=== PATIENT | female | born 1925 | race Caucasian/White ===

== ENCOUNTER → 2016-11-01 | Outpatient (CLI) | payer MEDICARE, OTHER ==
--- NOTE | 2016-11-01 15:38 | US ---
EXAMINATION TYPE: US kidneys/renal and bladder DATE OF EXAM: 11/01/2016 3:13 PM COMPARISON: NONE CLINICAL HISTORY: US. Hematuria microscopic per order. EXAM MEASUREMENTS: Right Kidney: 9.1 x 5.4 x 4.9cm Left Kidney: 10.5 x 7.9 x 7.2cm ANATOMY: TECHNOLOGIST IMPRESSION: Right Kidney: no evidence of hydronephrosis Left Kidney: cystic lesion = 6.4 x 7.1 x 6.2cm Bladder: appears wnl Bilateral Jets seen: yes There is no evidence for hydronephrosis at this point in time in either kidney. There is large otherw ise simple appearing 7.1 cm cyst in left kidney mid pole level. The urinary bladder is anechoic. Bilateral ureteral jets are seen towards end of study. IMPRESSION: No significant finding is seen to account for patient's symptoms.
== END | disposition home or self-care (01) ==
LOC: RADUSWWP 14:44
PROVIDERS: ATTEND Family Medicine
DX: R31.29 Other microscopic hematuria (principal)
CPT/HCPCS: 76770

== ENCOUNTER 2017-02-04 14:00 | Emergency (ER) | payer MEDICARE, OTHER ==
--- NOTE | 2017-02-04 14:50 | ED ---
General Adult HPI - General Chief complaint: Urogenital Stated complaint: poss UTI Time Seen by Provider: 02/04/17 14:22 Source: patient, family, RN notes reviewed, old records reviewed Mode of arrival: ambulatory Limitations: altered mental status - History of Present Illness Initial comments: Chief complaint and history of present illness this is a 11-year-old female here with her daughter. The daughter takes care of her. 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 She's not yet diagnosed Alzheimer's. She has had urinary tract infections which usually occur when she has her significant mental changes. The patient himself has no complaints of any discomfort or problems. - Related Data Home Medications Medication Instructions Recorded Confirmed Ascorbic Acid [Vitamin C] 500 mg PO BID 01/11/16 02/04/17 Atorvastatin [Lipitor] 20 mg PO AC-SUPPER 01/11/16 02/04/17 Cholecalciferol [Vitamin D3] 1,000 unit PO AC-BRKFST 01/11/16 02/04/17 Cranberry 4,200 mg PO DAILY 01/11/16 02/04/17 Cyanocobalamin [Vitamin B-12] 1,000 mcg PO AC-BRKFST 01/11/16 02/04/17 Donepezil [Aricept] 20 mg PO AC-SUPPER 01/11/16 02/04/17 LORazepam [Ativan] 0.5 mg PO TID PRN 01/11/16 02/04/17 Melatonin 15 mg PO DAILY 01/11/16 02/04/17 Memantine [Namenda] 10 mg PO BID 01/11/16 02/04/17 Methylsulfonylmethane [MSM] 1,000 mg PO DAILY 01/11/16 02/04/17 Mirtazapine [Remeron] 7.5 mg PO AC-SUPPER 01/11/16 02/04/17 Vit C/E/Zn/Coppr/Lutein/Zeaxan 1 cap PO BID 01/11/16 02/04/17 [Preservision Areds 2 Softgel] Divalproex Sodium [Depakote] 125 mg PO W/SUPPER 10/09/16 02/04/17 Loratadine [Claritin] 10 mg PO DAILY 10/09/16 02/04/17 Multivitamins, Thera [Multivitamin] 1 tab PO DAILY 10/09/16 02/04/17 Methenamine/Sodium Salicylate 2 tab PO BID 02/04/17 02/04/17 [Cystex Tablet] Allergies Allergy/AdvReac Type Severity Reaction Status Date / Time No Known Allergies Allergy Verified 02/04/17 14:27 Review of Systems ROS Statement: Those systems with pertinent positive or pertinent negative responses have been documented in the HPI. Review of systems patient's denying headache chest pain shortness of breath GI/ problems. She states she is not hungry. Daughter reports that she does have a history of dementia which is getting progressively worse as the years gone on. Daughter reports that her frequent history of urinary tract infections hyperlipidemia and dementia. No apparent surgical history cornea. No ALLERGIES noted. On last visit to the emergency room this past [place]. The patient was positive for RBCs in the urine. They did follow with family physician ultrasound of the kidneys were negative. No repeat urinalysis was done after that so today is with the first one since then. Nonsmoker nondrinker. ROS Other: All systems not noted in ROS Statement are negative. Past Medical History Past Medical History: Hyperlipidemia Additional Past Medical History / Comment(s): DEMENTIA History of Any Multi-Drug Resistant Organisms: None Reported Past Surgical History: No Surgical Hx Reported Past Psychological History: No Psychological Hx Reported Smoking Status: Never smoker Past Alcohol Use History: None Reported Past Drug Use History: None Reported General Exam - General Exam Comments Initial Comments: General: The patient is awake and alert, in no distress, and does not appear acutely ill. Patient does have dementia and had some difficulty expressing herself initially. Forgot who her daughter was. Vital signs shows temperature 99.0 pulse 85 respiratory rate 20 pulse ox 96% room air blood pressure 137/64 Eye: Pupils are equal, round and reactive to light, extra-ocular movements are intact ; there is normal conjunctiva bilaterally. No signs of icterus. Patient has arcus senilis Ears, nose, mouth and throat: There are moist mucous membranes and no oral lesions. Neck: The neck is supple, there is no tenderness , no anterior cervical lymphadenopathy. No complaint of headache or stiff neck with movement. Cardiovascular: There is a regular rate and rhythm. No murmur, rub or gallop is appreciated. Respiratory: Lungs are clear to auscultation, respirations are non-labored, breath sounds are equal. No wheezes, stridor, rales, or rhonchi. Gastrointestinal: Soft, non-distended, non-tender abdomen without masses or organomegaly noted. There is no rebound or guarding present. No CVA tenderness. Bowel sounds are unremarkable. Back: There is no tenderness to palpation in the midline. There is no obvious deformity. No rashes noted. No back pain. Daughter reports that when she walks occasion she'll stop bend over as though she is in pain. The patient was able to demonstrate to assess years old walk 20-30 feet turn around and come back did not complain of any pain did not act as if she is in pain. Musculoskeletal: Normal ROM, no tenderness, There is no pedal edema. There is no calf tenderness or swelling. Sensation intact. Pulses equal bilaterally 2+. Neurological: Neurologically the patient's moving upper and lower extremities walking with good balance. No evidence of any focal or lateralizing findings. Skin: Patient has a chronic skin condition with multiple skin tags on her back. Psychiatric: History of dementia. 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 Limitations: altered mental status Course Vital Signs 02/04/17 14:02 Temperature 99.0 F Pulse Rate 85 Respiratory 20 Rate Blood Pressure 137/64 O2 Sat by Pulse 96 Oximetry Medical Decision Making - Medical Decision Making Medical decision making the patient's urine shows only 1 red 4 whites. I discussed with the patient and daughter at bedside sundowners and progression of dementia etc. The patient this time has no other complaints and playing without difficulty. Daughter's was advised to follow-up with the family physician. Return emergency room as needed - Lab Data Lab Results 02/04/17 Range/Units 14:52 Urine Color Light Yellow Urine Appearance Clear (Clear) Urine pH 6.0 (5.0-8.0) Ur Specific [place] 1.009 (1.001-1.035) Urine Protein Negative (Negative) Urine Glucose (UA) Negative (Negative) Urine Ketones Negative (Negative) Urine Blood Negative (Negative) Urine Nitrite Negative (Negative) Urine Bilirubin Negative (Negative) Urine Urobilinogen <2.0 (<2.0) mg/dL Ur Leukocyte Esterase Trace H (Negative) Urine RBC 1 (0-5) /hpf Urine WBC 4 (0-5) /hpf Ur Squamous Epith Cells <1 (0-4) /hpf Amorphous Sediment Rare H (None) /hpf Urine Mucus Rare H (None) /hpf Disposition 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 Family to ensure environment is safe for the patient. Time of Disposition: 15:25
[2017-02-04 15:12] LABS: Amorphous Sediment,Urine Rare /hpf; Appearance,Urine Clear (Clear); Bilirubin,Urine Negative (Negative); Glucose,Urine (UA) Negative (Negative); Ketones,Urine Negative (Negative); Leukocyte Esterase,Urine Trace (Negative); Mucus,Urine Rare /hpf; Nitrite,Urine Negative (Negative); Particle Count 1811; Protein,Urine Negative (Negative); RBC,Urine 1 /hpf (0-5); Specific Gravity,Urine 1.009 (1.001-1.035); Squamous Epithelial Cell,Urine <1 /hpf (0-4); UA Billing (MACRO vs. MICRO) MICRO; Urobilinogen,Urine <2.0 mg/dL (<2.0); WBC,Urine 4 /hpf (0-5)
[2017-02-04 15:46] VITALS: BP 132/62; PULSE 78; RESP 18; TEMP 99.1
== END 2017-02-04 15:45 | disposition home or self-care (01) ==
LOC: EC 14:00
DX: F03.90 Unspecified dementia, unspecified severity, without behavioral disturbance, psychotic disturbance, mood disturbance, and anxiety (principal); F91.9 Conduct disorder, unspecified; E78.5 Hyperlipidemia, unspecified; Z79.899 Other long term (current) drug therapy
CPT/HCPCS: 81001; 87086; 99284

== ENCOUNTER 2017-06-01 16:06 | Emergency (ER) | payer MEDICARE ==
[2017-06-01 16:33] VITALS: TEMP 99.1
--- NOTE | 2017-06-01 17:21 | ED ---
Altered Mental Status HPI - General Chief Complaint: Altered Mental Status Stated Complaint: dementia agitation Time Seen by Provider: 06/01/17 16:26 Source: family, EMS, RN notes reviewed, old records reviewed Mode of arrival: EMS - History of Present Illness Initial Comments: A 11-year-old female presents emergency Department via EMS with her daughter chief complaint of increased agitation. Patient's daughter takes care of her. Patient's daughter reports that she was becoming severely agitated and she had a call the police to call her mother down. Patient daughter reports that she gave her an Ativan at 1:30. Patient was becoming increasingly agitated around before that and around 3:00. Patient daughter states that she is concerned she may have a possible UTIs this has been acutely worse. She states that she occasionally will have some agitation and never has been this bad. - Related Data Home Medications Medication Instructions Recorded Confirmed Ascorbic Acid [Vitamin C] 500 mg PO BID 01/11/16 06/01/17 Atorvastatin [Lipitor] 20 mg PO W/SUPPER 01/11/16 06/01/17 Cholecalciferol [Vitamin D3] 1,000 unit PO W/BRKFST 01/11/16 06/01/17 Donepezil [Aricept] 20 mg PO W/SUPPER 01/11/16 06/01/17 LORazepam [Ativan] 0.5 mg PO TID PRN 01/11/16 06/01/17 Melatonin 15 mg PO W/SUPPER 01/11/16 06/01/17 Memantine [Namenda] 10 mg PO BID 01/11/16 06/01/17 Methylsulfonylmethane [MSM] 1,000 mg PO DAILY 01/11/16 06/01/17 Vit C/E/Zn/Coppr/Lutein/Zeaxan 1 cap PO BID 01/11/16 06/01/17 [Preservision Areds 2 Softgel] Divalproex Sodium [Depakote] 125 mg PO BID 10/09/16 06/01/17 Loratadine [Claritin] 10 mg PO QAM 10/09/16 06/01/17 Cranberry Fruit Extract [Cranberry] 500 mg PO DAILY 06/01/17 06/01/17 Cyanocobalamin (Vitamin B-12) 1,000 mcg PO W/BRKFST 06/01/17 06/01/17 [Vitamin B-12] Mirtazapine 7.5 mg PO W/SUPPER 06/01/17 06/01/17 Multivitamins, Thera [Multivitamin 1 tab PO W/BRKFST 06/01/17 06/01/17 (formulary)] Previous Rx's Medication Instructions Recorded LORazepam [Ativan] 0.5 mg PO TID #20 tab 06/01/17 Allergies Allergy/AdvReac Type Severity Reaction Status Date / Time No Known Allergies Allergy Verified 02/04/17 14:27 Review of Systems ROS Statement: Those systems with pertinent positive or pertinent negative responses have been documented in the HPI. ROS Other: All systems not noted in ROS Statement are negative. Past Medical History Past Medical History: Hyperlipidemia Additional Past Medical History / Comment(s): DEMENTIA History of Any Multi-Drug Resistant Organisms: None Reported Past Surgical History: No Surgical Hx Reported Past Psychological History: No Psychological Hx Reported Smoking Status: Never smoker Past Alcohol Use History: None Reported Past Drug Use History: None Reported General Exam - General Exam Comments Initial Comments: 89-year-old female, patient has dementia. Patient is calm and resting and playing with a stuffed animal. General appearance: alert, in no apparent distress Head exam: Present: atraumatic, normocephalic, normal inspection Eye exam: Present: normal appearance, PERRL, EOMI. Absent: scleral icterus, conjunctival injection, periorbital swelling ENT exam: Present: normal exam, mucous membranes moist Neck exam: Present: normal inspection. Absent: tenderness, meningismus, lymphadenopathy Respiratory exam: Present: normal lung sounds bilaterally. Absent: respiratory distress, wheezes, rales, rhonchi, stridor Cardiovascular Exam: Present: regular rate, normal rhythm, normal heart sounds. Absent: systolic murmur, diastolic murmur, rubs, gallop, clicks GI/Abdominal exam: Present: soft, normal bowel sounds. Absent: distended, tenderness, guarding, rebound, rigid Extremities exam: Present: normal inspection, full ROM, normal capillary refill. Absent: tenderness, pedal edema, joint swelling, calf tenderness Back exam: Present: normal inspection Neurological exam: Present: alert, oriented X3, CN II-XII intact Psychiatric exam: Present: normal affect, normal mood Skin exam: Present: warm, dry, intact, normal color. Absent: rash Course Vital Signs 06/01/17 06/01/17 06/01/17 16:23 16:31 18:41 Temperature 99.7 F H 99.1 F Pulse Rate 73 70 71 Respiratory 16 17 17 Rate Blood Pressure 120/58 120/58 122/56 O2 Sat by Pulse 96 94 L 96 Oximetry Medical Decision Making - Medical Decision Making Female chief complaint of increased agitation over the past day. Patient's caregiver, her daughter is concerned she may have urinary tract infection or other signs of the malleus. Patient's lab work was reviewed and negative for any acute process. Negative for urinary tract infection. Discussed that patient does have severe dementia and it seems to be increasing. Discussed that they Should increase patient's Ativan dosage if she is becoming acutely worsen agitated. Patient was given 2 mg of Ativan in the emergency department. Lengthy discussion with the caregiver, patient's daughter that she needs to be taking the Ativan regularly if she became increasingly agitated. Discussed close follow-up with her primary care physician. Return to emergency department if any alarming signs or symptoms occur. - Lab Data Result diagrams: 06/01/17 18:07 06/01/17 18:07 Lab Results 06/01/17 06/01/17 06/01/17 Range/Units 18:07 18:07 18:07 WBC 7.1 (3.8-10.6) k/uL RBC 4.10 (3.80-5.40) m/uL Hgb 13.6 (11.4-16.0) gm/dL Hct 41.8 (34.0-46.0) % MCV 101.8 H (80.0-100.0) fL MCH 33.2 (25.0-35.0) pg MCHC 32.6 (31.0-37.0) g/dL RDW 13.3 (11.5-15.5) % Plt Count 292 (150-450) k/uL Neutrophils % 71 % Lymphocytes % 18 % Monocytes % 7 % Eosinophils % 2 % Basophils % 1 % Neutrophils # 5.1 (1.3-7.7) k/uL Lymphocytes # 1.3 (1.0-4.8) k/uL Monocytes # 0.5 (0-1.0) k/uL Eosinophils # 0.1 (0-0.7) k/uL Basophils # 0.0 (0-0.2) k/uL Macrocytosis Slight PT (9.0-12.0) sec INR (<1.2) APTT (22.0-30.0) sec Sodium 142 (137-145) mmol/L Potassium 4.1 (3.5-5.1) mmol/L Chloride 103 (98-107) mmol/L Carbon Dioxide 28 (22-30) mmol/L Anion Gap 11 mmol/L BUN 20 H (7-17) mg/dL Creatinine 0.89 (0.52-1.04) mg/dL Est GFR (MDRD) Af Amer >60 (>60 ml/min/1.73 sqM) Est GFR (MDRD) Non-Af 60 (>60 ml/min/1.73 sqM) Glucose 82 (74-99) mg/dL POC Glucose (mg/dL) (75-99) mg/dL POC Glu Food Sanitarian ID Calcium 9.7 (8.4-10.2) mg/dL Total Bilirubin 0.5 (0.2-1.3) mg/dL AST 21 (14-36) U/L ALT 28 (9-52) U/L Alkaline Phosphatase 88 (38-126) U/L Total Creatine Kinase 35 (30-135) U/L CK-MB (CK-2) 0.7 (0.0-2.4) ng/mL CK-MB (CK-2) Rel Index 2.0 Troponin I 0.012 (0.000-0.034) ng/mL Total Protein 7.4 (6.3-8.2) g/dL Albumin 4.3 (3.5-5.0) g/dL Urine Color Urine Appearance (Clear) Urine pH (5.0-8.0) Ur Specific [place] (1.001-1.035) Urine Protein (Negative) Urine Glucose (UA) (Negative) Urine Ketones (Negative) Urine Blood (Negative) Urine Nitrite (Negative) Urine Bilirubin (Negative) Urine Urobilinogen (<2.0) mg/dL Ur Leukocyte Esterase (Negative) 06/01/17 06/01/17 06/01/17 Range/Units 18:07 18:25 19:05 WBC (3.8-10.6) k/uL RBC (3.80-5.40) m/uL Hgb (11.4-16.0) gm/dL Hct (34.0-46.0) % MCV (80.0-100.0) fL MCH (25.0-35.0) pg MCHC (31.0-37.0) g/dL RDW (11.5-15.5) % Plt Count (150-450) k/uL Neutrophils % % Lymphocytes % % Monocytes % % Eosinophils % % Basophils % % Neutrophils # (1.3-7.7) k/uL Lymphocytes # (1.0-4.8) k/uL Monocytes # (0-1.0) k/uL Eosinophils # (0-0.7) k/uL Basophils # (0-0.2) k/uL Macrocytosis PT 10.7 (9.0-12.0) sec INR 1.1 (<1.2) APTT 23.1 (22.0-30.0) sec Sodium (137-145) mmol/L Potassium (3.5-5.1) mmol/L Chloride (98-107) mmol/L Carbon Dioxide (22-30) mmol/L Anion Gap mmol/L BUN (7-17) mg/dL Creatinine (0.52-1.04) mg/dL Est GFR (MDRD) Af Amer (>60 ml/min/1.73 sqM) Est GFR (MDRD) Non-Af (>60 ml/min/1.73 sqM) Glucose (74-99) mg/dL POC Glucose (mg/dL) 96 (75-99) mg/dL POC Glu Food Sanitarian ID Max, [place] Calcium (8.4-10.2) mg/dL Total Bilirubin (0.2-1.3) mg/dL AST (14-36) U/L ALT (9-52) U/L Alkaline Phosphatase (38-126) U/L Total Creatine Kinase (30-135) U/L CK-MB (CK-2) (0.0-2.4) ng/mL CK-MB (CK-2) Rel Index Troponin I (0.000-0.034) ng/mL Total Protein (6.3-8.2) g/dL Albumin (3.5-5.0) g/dL Urine Color Light Yellow Urine Appearance Clear (Clear) Urine pH 7.0 (5.0-8.0) Ur Specific [place] 1.010 (1.001-1.035) Urine Protein Negative (Negative) Urine Glucose (UA) Negative (Negative) Urine Ketones Negative (Negative) Urine Blood Negative (Negative) Urine Nitrite Negative (Negative) Urine Bilirubin Negative (Negative) Urine Urobilinogen <2.0 (<2.0) mg/dL Ur Leukocyte Esterase Negative (Negative) 06/01/17 19:20 EKG shows normal sinus rhythm. Vent rate 64 bpm. HI interval 150 ms. QS duration 82 ms. QT QTc is 404/460 ms. Disposition Clinical Impression: Alzheimer disease Disposition: HOME SELF-CARE Condition: Stable Instructions: Dementia (ED) Additional Instructions: Patient has follow-up with her primary care physician. You can increase her Ativan dosage to how it as prescribed for 3 times a day, or if she is increased 4 times a day. Patient is to return to the emergency department if any alarming signs or symptoms occur. Prescriptions: LORazepam [Ativan] 0.5 mg PO TID #20 tab Referrals: Herb Schuler MD [Primary Care Provider] - 1-2 days Time of Disposition: 20:06
[2017-06-01 18:19] LABS: Basophils % (A) 1 %; CH 33.8; CHCM 33.4; Eosinophils # (A) 0.1 k/uL (0-0.7); Eosinophils % (A) 2 %; HCT 41.8 % (34.0-46.0); HDW 2.03; HGB 13.6 gm/dL (11.4-16.0); Luc # (Auto) 0.15; Luc % (Auto) 2; Lymphocytes # (A) 1.3 k/uL (1.0-4.8); Lymphocytes % (A) 18 %; MCH 33.2 pg (25.0-35.0); MCHC 32.6 g/dL (31.0-37.0); MCV 101.8 fL (80.0-100.0); Macrocytosis Slight; Mean Platelet Volume 7.6; Monocytes # (A) 0.5 k/uL (0-1.0); Monocytes % (A) 7 %; Neutrophils # (A) 5.1 k/uL (1.3-7.7); Neutrophils % (A) 71 %; RDW 13.3 % (11.5-15.5); WBC 7.1 k/uL (3.8-10.6); WBC (Perox) 7.44
[2017-06-01 18:28] LABS: INR 1.1 (<1.2); Partial Thromboplastin Time 23.1 sec (22.0-30.0); Prothrombin Time 10.7 sec (9.0-12.0)
[2017-06-01 18:28] LABS: Glucose,Whole Blood 96 mg/dL (75-99)
[2017-06-01 18:29] LABS: ALT 28 U/L (9-52); AST 21 U/L (14-36); Alkaline Phosphatase 88 U/L (38-126); Anion Gap 11 mmol/L; Blood Urea Nitrogen 20 mg/dL (7-17); Calcium 9.7 mg/dL (8.4-10.2); Carbon Dioxide 28 mmol/L (22-30); Chloride 103 mmol/L (98-107); Glucose 82 mg/dL (74-99); Non-African American GFR(MDRD) 60 (>60 ml/min/1.73 sqM); Potassium 4.1 mmol/L (3.5-5.1); Sodium 142 mmol/L (137-145); Total Bilirubin 0.5 mg/dL (0.2-1.3); Total Protein 7.4 g/dL (6.3-8.2)
[2017-06-01 18:59] LABS: Creatine Kinase MB 0.7 ng/mL (0.0-2.4); Troponin I 0.012 ng/mL (0.000-0.034)
[2017-06-01] MEDS ORDERED: LORazepam 2 MG/ML SYRINGE IV STA ×2 (19:23→20:03)
[2017-06-01 19:43] LABS: Appearance,Urine Clear (Clear); Bilirubin,Urine Negative (Negative); Glucose,Urine (UA) Negative (Negative); Ketones,Urine Negative (Negative); Leukocyte Esterase,Urine Negative (Negative); Nitrite,Urine Negative (Negative); Protein,Urine Negative (Negative); UA Billing (MACRO vs. MICRO) CHEM; Urobilinogen,Urine <2.0 mg/dL (<2.0)
[2017-06-01 21:21] VITALS: BP 124/61; PULSE 80; RESP 16
== END 2017-06-01 20:40 | disposition home or self-care (01) ==
LOC: EC 16:06
DX: G30.9 Alzheimer's disease, unspecified (principal); F02.80 Dementia in other diseases classified elsewhere, unspecified severity, without behavioral disturbance, psychotic disturbance, mood disturbance, and anxiety; E78.5 Hyperlipidemia, unspecified; Z79.899 Other long term (current) drug therapy
CPT/HCPCS: 36415; 80053; 82550; 82553; 84484; 85025; 85610; 85730; 81003; 99285; 96374; 96376; J2060

== ENCOUNTER 2017-06-07 05:59 | Emergency (ER) | payer MEDICARE ==
[2017-06-07 06:06] VITALS: RESP 18
--- NOTE | 2017-06-07 06:31 | ED ---
General Adult HPI - General Chief complaint: Abdominal Pain Stated complaint: Adb/Rib pain Time Seen by Provider: 06/07/17 06:12 Source: patient Mode of arrival: wheelchair Limitations: no limitations - History of Present Illness Initial comments: 89 years old female with history of dementia lives with her daughter, daughter noticed that she felt cooperative, no fall was not witnessed daughter. That she was not walking as well since the fall she is concerned that she may have hurt her hips or something in the abdomen. Review of system is otherwise unremarkable. - Related Data Home Medications Medication Instructions Recorded Confirmed Ascorbic Acid [Vitamin C] 500 mg PO BID 01/11/16 06/07/17 Atorvastatin [Lipitor] 20 mg PO W/SUPPER 01/11/16 06/07/17 Cholecalciferol [Vitamin D3] 1,000 unit PO W/BRKFST 01/11/16 06/07/17 Donepezil [Aricept] 20 mg PO W/SUPPER 01/11/16 06/07/17 LORazepam [Ativan] 0.5 mg PO TID PRN 01/11/16 06/07/17 Melatonin 15 mg PO W/SUPPER 01/11/16 06/07/17 Memantine [Namenda] 10 mg PO BID 01/11/16 06/07/17 Methylsulfonylmethane [MSM] 1,000 mg PO DAILY 01/11/16 06/07/17 Vit C/E/Zn/Coppr/Lutein/Zeaxan 1 cap PO BID 01/11/16 06/07/17 [Preservision Areds 2 Softgel] Divalproex Sodium [Depakote] 125 mg PO DAILY 10/09/16 06/07/17 Loratadine [Claritin] 10 mg PO QAM 10/09/16 06/07/17 Cranberry Fruit Extract [Cranberry] 500 mg PO DAILY 06/01/17 06/07/17 Cyanocobalamin (Vitamin B-12) 1,000 mcg PO W/BRKFST 06/01/17 06/07/17 [Vitamin B-12] Mirtazapine 7.5 mg PO W/SUPPER 06/01/17 06/07/17 Multivitamins, Thera [Multivitamin 1 tab PO W/BRKFST 06/01/17 06/07/17 (formulary)] Divalproex [Depakote] 250 mg PO HS 06/07/17 06/07/17 Previous Rx's Medication Instructions Recorded LORazepam [Ativan] 0.5 mg PO TID #20 tab 06/01/17 Amoxicillin 500 mg PO Q8H #30 capsule 06/07/17 Allergies Allergy/AdvReac Type Severity Reaction Status Date / Time No Known Allergies Allergy Verified 06/07/17 06:06 Review of Systems ROS Statement: Those systems with pertinent positive or pertinent negative responses have been documented in the HPI. ROS Other: All systems not noted in ROS Statement are negative. Past Medical History Past Medical History: Hyperlipidemia Additional Past Medical History / Comment(s): DEMENTIA History of Any Multi-Drug Resistant Organisms: None Reported Past Surgical History: No Surgical Hx Reported Past Psychological History: No Psychological Hx Reported Smoking Status: Never smoker Past Alcohol Use History: None Reported Past Drug Use History: None Reported General Exam - General Exam Comments Initial Comments: General: The patient is awake and alert, in no distress, and does not appear acutely ill. She is pleasantly confused Skin: Skin is warm and dry and no rashes or lesions are noted. Eye: Pupils are equal, round and reactive to light, extra-ocular movements are intact; there is normal conjunctiva bilaterally. Ears, nose, mouth and throat: There are moist mucous membranes and no oral lesions. Neck: The neck is supple, there is no tenderness or JVD. Cardiovascular: There is a regular rate and rhythm. No murmur, rub or gallop is appreciated. Respiratory: To auscultation bilateral, noticed crackles at the bases Gastrointestinal: Soft, non-distended, non-tender abdomen without masses or organomegaly noted. There is no rebound or guarding present. Bowel sounds are unremarkable. Back: There is no tenderness to palpation in the midline. There is no obvious deformity. Musculoskeletal: Mildly tender over right greater trochanter area, distal right lower extremity is unremarkable no neurovascular compromise noticed Neurological: CN II-XII intact, Cranial nerves III through XII are intact. There are no obvious motor or sensory deficits. Coordination appears grossly intact. Speech is normal. Psychiatric: Cooperative, pleasant but confused Limitations: no limitations Course Vital Signs 06/07/17 06:02 Temperature 98.0 F Pulse Rate 72 Respiratory 18 Rate Blood Pressure 147/64 O2 Sat by Pulse 94 L Oximetry Disposition Clinical Impression: Right hip pain, Bronchitis Disposition: HOME SELF-CARE Condition: Good Instructions: Hip Pain (ED) Prescriptions: Amoxicillin 500 mg PO Q8H #30 capsule Referrals: Herb Schuler MD [Primary Care Provider] - 1-2 days
--- NOTE | 2017-06-07 07:04 | XR ---
EXAM: XR Chest, 2 Views. CLINICAL HISTORY: Reason: abdominal pain TECHNIQUE: Frontal and lateral views of the chest. COMPARISON: No relevant prior studies available. FINDINGS: Lungs: Mild atelectasis versus early consolidation seen in the left lung base. Lungs are otherwise normally inflated. Pleural spaces: No significant pleural effusion. No pneumothorax. Heart: Heart size top normal. Mediastinum: Unremarkable. Bones: Unremarkable. No acute fracture. IMPRESSION: Mild left basilar atelectasis/consolidation. Otherwise no evidence of active cardiopulmonary abnormality.
--- NOTE | 2017-06-07 07:06 | XR ---
EXAM: XR Right Hip With Pelvis When Performed, 1 View. CLINICAL HISTORY: Reason: Pain TECHNIQUE: Frontal view of the right hip. COMPARISON: No relevant prior studies available. FINDINGS: Bones: No acute fracture. Joints: No dislocation. Soft tissues: Unremarkable. IMPRESSION: No fracture or dislocation.
[2017-06-07 07:20] VITALS: BP 131/62; PULSE 62; TEMP 98.8
== END 2017-06-07 07:24 | disposition home or self-care (01) ==
LOC: EC 05:59
DX: M25.551 Pain in right hip (principal); J40 Bronchitis, not specified as acute or chronic; F03.90 Unspecified dementia, unspecified severity, without behavioral disturbance, psychotic disturbance, mood disturbance, and anxiety; E78.5 Hyperlipidemia, unspecified; Z79.899 Other long term (current) drug therapy
CPT/HCPCS: 71020; 73502; 99284

== ENCOUNTER → 2017-07-06 | Outpatient (CLI) | payer MEDICARE | END | disposition home or self-care (01) | LOC: LABWHC1 07:54 | PROVIDERS: ATTEND Psychiatry & Neurology Psychiatry | DX: F03.90 Unspecified dementia, unspecified severity, without behavioral disturbance, psychotic disturbance, mood disturbance, and anxiety (principal) | CPT/HCPCS: 36415; 80164; 84450; 84460 ==